=== PATIENT | female | born 1990 | race Caucasian/White ===

== ENCOUNTER 2021-10-04 07:24 | Emergency (ER) | payer OTHER ==
[~2021-10-04] VITALS: Ht 167.6 cm; Wt 107.0 kg
[~2021-10-04 07:24] MED LIST: IBUPROFEN400 MG PO; TYLENOL325 MG PO; ULTRAM50 MG PO
[2021-10-04] MEDS ORDERED: PRAZOSIN HCL1 MG PO (08:20)
[2021-10-04] MEDS ORDERED: HYDROCODON-ACE1 EA11 PO (09:39)
[2021-10-04] MEDS ORDERED: DECADRON4 MG PO (09:39)
== END 2021-10-04 09:50 | disposition home or self-care (01) ==
LOC: ED 07:24
DX: M54.41 Lumbago with sciatica, right side (principal); F17.200 Nicotine dependence, unspecified, uncomplicated; Z88.8 Allergy status to other drugs, medicaments and biological substances
CPT/HCPCS: 96372; 99283; J1100; J1885

== ENCOUNTER 2024-07-30 08:54 | Emergency (ER) | payer OTHER ==
[~2024-07-30] VITALS: Ht 167.6 cm; Wt 99.8 kg
[~2024-07-30 08:54] MED LIST changes: +CYCLOBENZAPRINE10 MG PO; +DECADRON4 MG PO; +HYDROCODON-ACE1 EA11 PO; +KETOROLAC TROME10 MG PO; +LIDODERM1 EACH TOP; +PRAZOSIN HCL1 MG PO; +PREDNISONE20 MG PO
[2024-07-30] MEDS ORDERED: METHOCARBAMOL750 MG PO (09:11)
[2024-07-30] MEDS ORDERED: ZANTAC-360 (FAM20 MG PO (09:12)
[2024-07-30] MEDS ORDERED: HYDROXYZINE HCL25 MG PO (09:13)
[2024-07-30] MEDS ORDERED: KETOROLAC TROMETHAMINE 30 MG/ML VIAL IV ONE (09:30)
[2024-07-30] MEDS ORDERED: DEXAMETHASONE SOD PHOS 10 MG/ML VIAL IV ONE (09:30)
[2024-07-30 09:47] LABS: BASOPHILS 1.6 % (0-2); EOSINOPHILS 0.8 % (0-6); HEMOGLOBIN 14.4 g/dL (12.0-18.0); LYMPHOCYTES 35.7 % (24-44); MCH 29.7 (27-36); MCHC 33.5 g/dl (30-36); MCV 88.7 fl (81-99); MONOCYTES 7.8 % (0-12); NEUTROPHILS 54.1 % (39-80); PLATELET COUNT 315 K/uL (140-440); RBC 4.84 M/ul (4.3-5.7); RDW 13.6 (10.5-15.0)
[2024-07-30 10:07] LABS: ALBUMIN 3.6 g/dL (3.4-5.0); ALBUMIN/GLOBULIN RATIO 1.09 (1.1-2.4); ANION GAP 13.9 (7-21); BILIRUBIN, TOTAL 0.2 ng/dL (0.2-1.0); BUN/CREATININE RATIO 9.52 (6.0-28.6); CALCIUM 8.9 mg/dL (8.5-10.1); CREATININE, SERUM 0.84 mg/dL (0.55-1.02); POTASSIUM 3.9 mmol/L (3.5-5.1); PROTEIN, TOTAL 6.9 g/dL (6.4-8.2)
[2024-07-30] MEDS ORDERED: HYDROCODON-ACE1 EA10 PO (11:11)
[2024-07-30] MEDS ORDERED: PREDNISONE20 MG PO (11:11)
[2024-07-30 11:20] VITALS: BP 97/64
--- NOTE | 2024-08-01 21:13 | EKG ---
[facility] [address] [place], [place] [address] Signed Sinus bradycardia Low voltage QRS Incomplete right bundle branch block Borderline ECG No previous ECGs available Confirmed by Antonio Liao DO ([id number]) on 08/01/2024 9:13:41 PM Electronically Signed By: ANTONIO LIAO DO 08/01/242112 PATIENT NAME: ALFREDO PEDRAZA Electrocardiogram DATE OF : 89 PHYSICIAN: ANTONIO LIAO DO REPORT #: [id number] REPORT IS CONFIDENTIAL AND NOT TO BE RELEASED WITHOUT AUTHORIZATION
== END 2024-07-30 11:20 | disposition home or self-care (01) ==
LOC: ED 08:54
PROVIDERS: Emergency Medicine
DX: M54.31 Sciatica, right side (principal); F17.200 Nicotine dependence, unspecified, uncomplicated; Z79.899 Other long term (current) drug therapy
CPT/HCPCS: 36415; 80053; 84703; 85025; 93005; 93010; 96374; 96375; 99283-25; J1100; J1885